=== PATIENT | male | born 1995 | race Caucasian/White ===

== ENCOUNTER 2016-06-08 11:01 | Emergency (ER) | payer OTHER ==
[2016-06-08] MEDS ORDERED: DIPHENHYDRAMINE 50 MG/ML VIAL ONE (11:49)
[2016-06-08] MEDS ORDERED: ONDANSETRON ODT 4 MG TAB ONE (11:49)
[2016-06-08] MEDS ORDERED: METHYLPRED SOD SUCC 125 MG/2 ML VIAL ONE (11:50)
[2016-06-08] MEDS ORDERED: FAMOTIDINE 20 MG INJ ONE (11:50)
== END 2016-06-08 13:11 | disposition home or self-care (01) ==
LOC: ER 11:01
DX: L50.1 Idiopathic urticaria (principal); T78.40XA Allergy, unspecified, initial encounter; R21 Rash and other nonspecific skin eruption
CPT/HCPCS: 87880; 96374; 96375; 99283; J2930